=== PATIENT | male | born 1950 | race Caucasian/White ===

== ENCOUNTER 2019-07-14 15:36 | Outpatient (CLI) | payer MEDICARE ==
[2019-07-14 16:53] LABS: #Basophils 0.1 thou/uL (0.0-0.2); #Eosinphils 0.1 thou/uL (0.0-0.7); #Lymphocytes 2.6 thou/uL (1.20-3.40); #Monocytes 0.7 thou/uL (0.11-0.59); #Neutrophils 8.1 thou/uL (1.40-6.50); %Basophils 0.6 % (0.0-1.0); %Eosinophils 1.2 % (0.0-10.0); %Lymphocytes 22.8 % (21.0-51.0); %Monocytes 5.9 % (0.0-10.0); %Neutrophils 69.6 % (42.0-75.0); Hemoglobin 15.6 g/dL (14.0-18.0); Mean Corpuscular HGB CONC 33.6 g/dL (32.0-36.0); Mean Corpuscular Hemoglobin 32.7 pg (27.0-31.0); Mean Corpuscular Volume 97.3 fL (78.0-98.0); Mean Platelet Volume 8.1 fL (7.4-10.4); Platelet Count 190 thou/uL (130-400); RBC Distribution Width 13.3 % (11.5-14.5); Red Blood Cell (RBC) Count 4.77 mill/uL (4.70-6.10); White Blood Cell (WBC) Count 11.6 thou/uL (4.8-10.8)
[2019-07-14 17:20] LABS: ALT (SGPT) 14 U/L (8-55); AST (SGOT) 13 U/L (5-34); Albumin 4.4 g/dL (3.4-4.8); Alkaline Phosphatase 70 U/L (40-150); Anion Gap 11 mmol/L (10-20); BUN (Urea Nitrogen) 18 mg/dL (8.4-25.7); Bilirubin, Total 0.5 mg/dL (0.2-1.2); Calc. Creatinine Clearance 0 mL/min (70-130); Calcium 9.4 mg/dL (7.8-10.44); Carbon Dioxide 28 mmol/L (23-31); Chloride 106 mmol/L (98-107); Estimated GFR-MDRD 73; Globulin 2.4 g/dL (2.4-3.5); Glucose 87 mg/dL (80-115); Potassium 4.4 mmol/L (3.5-5.1); Protein, Total 6.8 g/dL (5.8-8.1); Sodium 141 mmol/L (136-145)
== END 2019-07-14 15:37 | disposition home or self-care (01) ==
LOC: LABBT 15:36
PROVIDERS: ATTEND Internal Medicine Cardiovascular Disease
DX: Z01.812 Encounter for preprocedural laboratory examination (principal)
CPT/HCPCS: 80053; 85025

== ENCOUNTER 2019-07-19 05:57 | Day surgery (SDC) | payer MEDICARE ==
[2019-07-14 16:00] VITALS: BMI 27.3
[2019-07-19] MEDS ORDERED: Diazepam 5 MG TAB ONE (06:10)
[2019-07-19] MEDS ORDERED: Lidocaine 1% (PF) 30 ML VIAL ONE (06:58)
[2019-07-19] MEDS ORDERED: Fentanyl 100 MCG/2 ML VIAL ONE (06:59)
[2019-07-19] MEDS ORDERED: Midazolam HCl 2 mg/2 ml Vial ONE (06:59)
[2019-07-19] MEDS ORDERED: Iopamidol 370 76% 100 ML VIAL ONE (10:04)
== END 2019-07-19 14:11 | disposition home or self-care (01) ==
LOC: CCL 05:57 → EEVIPCON 15:15
PROVIDERS: ATTEND Internal Medicine Cardiovascular Disease
PROC: 4A023N7 Measurement of Cardiac Sampling and Pressure, Left Heart, Percutaneous Approach (ICD-10-PCS; principal; 2019-07-19)
PROC: B2111ZZ Fluoroscopy of Multiple Coronary Arteries using Low Osmolar Contrast (ICD-10-PCS; 2019-07-19)
DX: I25.10 Atherosclerotic heart disease of native coronary artery without angina pectoris (principal); I25.82 Chronic total occlusion of coronary artery; I10 Essential (primary) hypertension; E78.00 Pure hypercholesterolemia, unspecified; E03.9 Hypothyroidism, unspecified; I49.3 Ventricular premature depolarization; F17.210 Nicotine dependence, cigarettes, uncomplicated; Z79.82 Long term (current) use of aspirin; Z79.899 Other long term (current) drug therapy; Z79.02 Long term (current) use of antithrombotics/antiplatelets; Z88.1 Allergy status to other antibiotic agents; Z88.0 Allergy status to penicillin; Z88.8 Allergy status to other drugs, medicaments and biological substances
CPT/HCPCS: 76942; 93458; 99152; 99153; C1769; J1644; J2001; J2250; J3010; Q9967

== ENCOUNTER 2019-08-18 13:53 | Outpatient (CLI) | payer MEDICARE ==
[2019-08-18 15:30] LABS: #Basophils 0.1 thou/uL (0.0-0.2); #Eosinphils 0.1 thou/uL (0.0-0.7); #Lymphocytes 2.2 thou/uL (1.20-3.40); #Monocytes 0.7 thou/uL (0.11-0.59); #Neutrophils 7.4 thou/uL (1.40-6.50); %Basophils 0.7 % (0.0-1.0); %Eosinophils 0.9 % (0.0-10.0); %Lymphocytes 21.3 % (21.0-51.0); %Monocytes 6.3 % (0.0-10.0); %Neutrophils 70.9 % (42.0-75.0); Hemoglobin 15.2 g/dL (14.0-18.0); Mean Corpuscular HGB CONC 34.6 g/dL (32.0-36.0); Mean Corpuscular Volume 95.4 fL (78.0-98.0); Mean Platelet Volume 8.1 fL (7.4-10.4); Platelet Count 172 thou/uL (130-400); RBC Distribution Width 13.4 % (11.5-14.5); Red Blood Cell (RBC) Count 4.62 mill/uL (4.70-6.10); White Blood Cell (WBC) Count 10.4 thou/uL (4.8-10.8)
[2019-08-18 15:50] LABS: ALT (SGPT) 11 U/L (8-55); AST (SGOT) 12 U/L (5-34); Albumin 4.2 g/dL (3.4-4.8); Alkaline Phosphatase 70 U/L (40-110); Anion Gap 12 mmol/L (10-20); BUN (Urea Nitrogen) 17 mg/dL (8.4-25.7); Bilirubin, Total 0.6 mg/dL (0.2-1.2); Calc. Creatinine Clearance 0 mL/min (70-130); Calcium 9.5 mg/dL (7.8-10.44); Carbon Dioxide 27 mmol/L (23-31); Chloride 105 mmol/L (98-107); Estimated GFR-MDRD 75; Globulin 2.7 g/dL (2.4-3.5); Glucose 121 mg/dL (80-115); Potassium 3.6 mmol/L (3.5-5.1); Protein, Total 6.9 g/dL (5.8-8.1); Sodium 140 mmol/L (136-145)
== END 2019-08-18 13:54 | disposition home or self-care (01) ==
LOC: LABBT 13:53
PROVIDERS: ATTEND Internal Medicine Cardiovascular Disease
DX: Z01.812 Encounter for preprocedural laboratory examination (principal)
CPT/HCPCS: 80053; 85025

== ENCOUNTER 2019-08-22 05:56 | Day surgery (SDC) | payer MEDICARE ==
[2019-08-18 14:07] VITALS: BMI 27.6
[2019-08-22] MEDS ORDERED: Diazepam 5 MG TAB ONE (06:11)
[2019-08-22 06:36] LABS: PTT 26.3 SEC (22.9-36.1); Prothrombin Time 12.7 SEC (12.0-14.7)
[2019-08-22] MEDS ORDERED: Lidocaine 1% (PF) 30 ML VIAL ONE (06:40)
[2019-08-22] MEDS ORDERED: Heparin 10,000 UNITS/1 ML VIAL ONE ×2 (06:42→08:38)
[2019-08-22] MEDS ORDERED: Ondansetron PF 4 MG/2 ML Vial ONE (06:42)
[2019-08-22] MEDS ORDERED: Nitroglycerin 100MG/250ML BOT 250 ML ONE (06:42)
[2019-08-22] MEDS ORDERED: Midazolam HCl 2 mg/2 ml Vial ONE (07:30)
[2019-08-22] MEDS ORDERED: Fentanyl 100 MCG/2 ML VIAL ONE (07:30)
[2019-08-22] MEDS ORDERED: Iopamidol 370 76% 100 ML VIAL ONE (11:25)
[2019-08-22] MEDS ORDERED: Iopamidol 370 76% 50 ML VIAL FS ONE (11:25)
[2019-08-22] MEDS ORDERED: Acetaminophen/Codeine 30-300mg Tablet ONE (13:39)
[2019-08-22] MEDS ORDERED: TICAGRELOR 90 MG TABLET PO SCH (19:00)
--- NOTE | 2019-08-23 03:06 | DIS ---
DATE OF ADMISSION: 08/22/2019 DATE OF DISCHARGE: 08/22/2019 Mr. Koroma is doing well. He underwent successful stent implantation today. The patient will be released home on the following medicines. 1. Aspirin 81 mg a day. 2. Brilinta 90 mg twice a day. 3. Isosorbide 30 mg a day. 4. Pitavastatin 1 mg a day. 5. Levothyroxine. We will hope to either help him get Praluent or Repatha as an outpatient. Job ID: [id number]
[2019-08-23] MEDS ORDERED: Levothyroxine Sodium 100 MCG TAB PO SCH (06:00)
[2019-08-23] MEDS ORDERED: Isosorbide Mononitrate (ER) 30 MG TAB PO SCH (09:00)
[2019-08-23] MEDS ORDERED: Pitavastatin Calcium 2 MG TAB PO SCH (09:00)
[2019-08-23] MEDS ORDERED: Multivit, Therapeutic 1 TAB PO SCH (09:00)
[2019-08-23] MEDS ORDERED: TICAGRELOR 90 MG TABLET PO SCH (09:00)
[2019-08-23] MEDS ORDERED: Aspirin Chewable 81 MG TAB PO SCH (09:00)
--- NOTE | 2019-08-24 19:47 | EKG ---
Test Reason : POST STENT Blood Pressure : / mmHG Vent. Rate : 060 BPM Atrial Rate : 060 BPM P-R Int : 196 ms QRS Dur : 092 ms QT Int : 450 ms P-R-T Axes : 061 001 048 degrees QTc Int : 450 ms Normal sinus rhythm Normal ECG When compared with ECG of 19-MAY-2007 12:45, No significant change was found Confirmed by EDGARD ROMAN, DR. Lackey ([id number]) on 08/24/2019 7:46:41 PM Referred By: SANTIAGO Confirmed By:DR. Ziyad RENE MD
== END 2019-08-22 19:45 | disposition home or self-care (01) ==
LOC: CCL 05:56
PROVIDERS: ATTEND Internal Medicine Cardiovascular Disease
PROC: 4A023N7 Measurement of Cardiac Sampling and Pressure, Left Heart, Percutaneous Approach (ICD-10-PCS; principal; 2019-08-22)
PROC: B2111ZZ Fluoroscopy of Multiple Coronary Arteries using Low Osmolar Contrast (ICD-10-PCS; 2019-08-22)
PROC: 027034Z Dilation of Coronary Artery, One Artery with Drug-eluting Intraluminal Device, Percutaneous Approach (ICD-10-PCS; 2019-08-22)
DX: I25.10 Atherosclerotic heart disease of native coronary artery without angina pectoris (principal); I10 Essential (primary) hypertension; I49.3 Ventricular premature depolarization; E78.00 Pure hypercholesterolemia, unspecified; E03.9 Hypothyroidism, unspecified; F17.210 Nicotine dependence, cigarettes, uncomplicated; Z79.02 Long term (current) use of antithrombotics/antiplatelets; Z79.82 Long term (current) use of aspirin; Z79.899 Other long term (current) drug therapy; Z88.0 Allergy status to penicillin; Z88.1 Allergy status to other antibiotic agents; Z88.8 Allergy status to other drugs, medicaments and biological substances
CPT/HCPCS: 36415; 76942; 85610; 85730; 92928; 93005; 93454; 93798; 99152; 99153; C1725; C1769; C1874; C1887; C9600; J1644; J2001; J2250; J2405; J3010; Q9967

== ENCOUNTER 2023-10-29 05:50 | Day surgery (SDC) | payer MEDICARE ==
[2023-10-28 11:07] VITALS: BMI 24.3
[2023-10-29] MEDS ORDERED: Lidocaine 1% (PF) 30 ML VIAL ONE (06:14)
[2023-10-29] MEDS ORDERED: Heparin 10,000 UNITS/ 10 ML VIAL ONE (06:14)
[2023-10-29] MEDS ORDERED: Midazolam HCl 2 mg/2 ml Vial ONE (06:14)
[2023-10-29] MEDS ORDERED: fentaNYL 50 mcg/mL 1 mL Vial ONE (06:14)
[2023-10-29] MEDS ORDERED: Nitroglycerin 50 MG/250 ML BOT 250 ML ONE (06:14)
[2023-10-29 06:28] LABS: #Basophils 0.1 thou/uL (0.0-0.2); #Eosinphils 0.2 thou/uL (0.0-0.7); #Monocytes 1.1 thou/uL (0.11-0.59); #Neutrophils 6.7 thou/uL (1.40-6.50); %Basophils 0.6 % (0.0-1.0); %Eosinophils 1.6 % (0.0-10.0); %Lymphocytes 25.1 % (21.0-51.0); %Monocytes 10.5 % (0.0-10.0); %Neutrophils 61.8 % (42.0-75.0); Hematocrit 49.1 % (42.0-52.0); Hemoglobin 16.3 g/dL (14.0-18.0); Mean Corpuscular HGB CONC 33.2 g/dL (32.0-36.0); Mean Corpuscular Hemoglobin 31.8 pg (27.0-31.0); Mean Corpuscular Volume 95.9 fl (78.0-98.0); Mean Platelet Volume 9.8 fL (7.4-10.4); Platelet Count 185 10x3/uL (130-400); RBC Distribution Width 14.6 % (11.5-14.5); Red Blood Cell (RBC) Count 5.12 mill/uL (4.70-6.10); White Blood Cell (WBC) Count 10.9 10x3/uL (4.8-10.8)
[2023-10-29 06:50] LABS: Anion Gap 12 mmol/L (10-20); BUN (Urea Nitrogen) 23 mg/dL (8.4-25.7); Calc. Creatinine Clearance 91 mL/min (70-130); Calcium 8.8 mg/dL (7.8-10.44); Carbon Dioxide 28 mmol/L (23-31); Chloride 108 mmol/L (98-107); Estimated GFR 85; Glucose 88 mg/dL (83-110); Potassium 3.6 mmol/L (3.5-5.1); Sodium 144 mmol/L (136-145)
[2023-10-29] MEDS ORDERED: Iopamidol 370 76% 100 ML VIAL ONE (13:27)
== END 2023-10-29 12:20 | disposition home or self-care (01) ==
LOC: CCL 05:50
PROVIDERS: ATTEND Internal Medicine Cardiovascular Disease
PROC: 4A023N7 Measurement of Cardiac Sampling and Pressure, Left Heart, Percutaneous Approach (ICD-10-PCS; principal; 2023-10-29)
PROC: B201YZZ Plain Radiography of Multiple Coronary Arteries using Other Contrast (ICD-10-PCS; 2023-10-29)
DX: I25.119 Atherosclerotic heart disease of native coronary artery with unspecified angina pectoris (principal); Z79.82 Long term (current) use of aspirin; Z79.84 Long term (current) use of oral hypoglycemic drugs; Z79.899 Other long term (current) drug therapy; Z86.16 Personal history of COVID-19; Z88.1 Allergy status to other antibiotic agents; Z88.8 Allergy status to other drugs, medicaments and biological substances; Z79.02 Long term (current) use of antithrombotics/antiplatelets
CPT/HCPCS: 80048; 85025; 93458; C1769 ×2; J3010; 99152; 99153; J1644; J2001; J2250; Q9967